=== PATIENT | male | born 1990 | race Caucasian/White ===

== ENCOUNTER 2017-04-04 13:15 | Emergency (ER) | payer MEDICAID ==
[~2017-04-04] VITALS: Ht 177.8 cm; Wt 61.6 kg
[2017-04-04 13:16] VITALS: BP 145/88
== END 2017-04-04 14:20 | disposition home or self-care (01) ==
LOC: ED 14:14
DX: J20.9 Acute bronchitis, unspecified (principal)
CPT/HCPCS: 71020; 99284

== ENCOUNTER 2018-11-22 01:53 | Emergency (ER) | payer MEDICAID ==
[~2018-11-22] VITALS: Ht 170.2 cm; Wt 63.3 kg
[2018-11-22 01:55] VITALS: BP 153/88
--- NOTE | 2018-11-22 02:00 | NUR ---
PT HERE FOR LEFT WRIST ABRASION.
--- NOTE | 2018-11-22 02:13 | NUR ---
Patient/Caregiver given discharge instructions and they have confirmed that they understand the instructions. Patient ambulatory with steady gait.
== END 2018-11-22 02:19 | disposition home or self-care (01) ==
LOC: ED 02:18
DX: S60.812A Abrasion of left wrist, initial encounter (principal); W55.03XA Scratched by cat, initial encounter; Y93.89 Activity, other specified; Y92.89 Other specified places as the place of occurrence of the external cause; Y99.8 Other external cause status
CPT/HCPCS: 99281

== ENCOUNTER 2019-06-24 00:44 | Emergency (ER) | payer MEDICAID ==
[~2019-06-24] VITALS: Ht 170.2 cm; Wt 67.8 kg
[2019-06-24 00:46] VITALS: BP 142/81
[2019-06-24] MEDS ORDERED: BENZONATATE 100 MG CAPSULE ONE (01:11)
[2019-06-24] MEDS ORDERED: BENZONATATE 100 MG CAPSULE PO SCH (01:30)
[2019-06-24] MEDS ORDERED: BENZONATATE 100 MG CAPSULE PO ONE (01:30)
== END 2019-06-24 01:39 | disposition home or self-care (01) ==
LOC: ED 01:12
DX: J06.9 Acute upper respiratory infection, unspecified (principal); F17.200 Nicotine dependence, unspecified, uncomplicated
CPT/HCPCS: 71045; 99283